=== PATIENT | female | born 1990 | race African-American/Black ===

== ENCOUNTER 2018-02-28 23:36 | Emergency (ER) | payer BC ==
[~2018-02-28] VITALS: Ht 177.8 cm; Wt 85.3 kg
[2018-02-28] MEDS ORDERED: [UNRECOGNIZED DRUG - OTHER] (23:45)
[2018-02-28] MEDS ORDERED: ALBUTEROL2.5 MG/31 INH (23:45)
[2018-02-28] MEDS ORDERED: SYMBICORT160 MCG/4. INH (23:45)
[2018-02-28] MEDS ORDERED: SPIRIVA INH (23:45)
[2018-03-01] MEDS ORDERED: PREDNISONE50 MG PO (01:14)
[2018-03-01] MEDS ORDERED: PROAIR HFA8.5 GM INH (01:14)
[2018-03-01 01:23] VITALS: BP 118/73
== END 2018-03-01 01:25 | disposition home or self-care (01) ==
LOC: ER 23:36
DX: J45.901 Unspecified asthma with (acute) exacerbation (principal); Z88.0 Allergy status to penicillin; Z88.8 Allergy status to other drugs, medicaments and biological substances

== ENCOUNTER 2018-12-09 10:42 | Emergency (ER) | payer BC, OTHER ==
[~2018-12-09] VITALS: Ht 172.7 cm; Wt 83.9 kg
[~2018-12-09 10:42] MED LIST: ALBUTEROL2.5 MG/31 INH; PREDNISONE50 MG PO; PROAIR HFA8.5 GM INH; SPIRIVA INH; SYMBICORT160 MCG/4. INH; [UNRECOGNIZED DRUG - OTHER]
[2018-12-09 11:23] LABS: ABSOLUTE NEUTROPHILS 5.6 thou/uL (1.4-8.2); BASOPHILS 0.6 % (0.0-2.0); EOSINOPHILS 1.8 % (0.0-3.0); HEMATOCRIT 35.5 % (37.0-47.0); HEMOGLOBIN 11.9 gm/dL (12.0-15.0); LYMPHOCYTES 17.9 % (24.0-44.0); MCH 26.5 pg (26.0-34.0); MCHC 33.5 g/dL (28.0-37.0); MCV 79.2 fL (80.0-100.0); PLATELET COUNT 220 thou/uL (150-400); POLYS 74.7 % (36.0-66.0); RBC 4.48 mil/uL (4.20-5.00); RDW 19.2 % (10.5-14.5); WBC 7.5 thou/uL (4.0-11.0)
[2018-12-09 11:34] LABS: CALCIUM 9.1 mg/dL (8.5-10.1); CREATININE 0.8 mg/dL (0.6-1.0); POTASSIUM 3.6 mmol/L (3.5-5.1)
[2018-12-09 11:39] LABS: ALBUMIN 4.3 g/dL (3.4-5.0); TOTAL BILIRUBIN 0.4 mg/dL (<0.1-1.0); TOTAL PROTEIN 8.4 g/dL (6.4-8.2)
[2018-12-09 12:27] LABS: ANISOCYTOSIS 2+
[2018-12-09 13:32] LABS: URINE BILIRUBIN NEGATIVE (Negative); URINE BLOOD NEGATIVE (Negative); URINE CLARITY CLEAR; URINE COLOR YELLOW; URINE GLUCOSE-RANDOM* NEGATIVE (Negative); URINE KETONES NEGATIVE (Negative); URINE LEUKOCYTES-REFLEX NEGATIVE (Negative); URINE NITRITE-REFLEX NEGATIVE (Negative); URINE PROTEIN (DIPSTICK) NEGATIVE (Negative); URINE SPECIFIC GRAVITY 1.015 (1.005-1.035); URINE UROBILINOGEN 0.2 E.U./dl (0.2-1.0)
[2018-12-09] MEDS ORDERED: ONDANSETRON HCL4 M2 PO (14:27)
[2018-12-09] MEDS ORDERED: PEPCID AC10 MG PO (14:27)
[2018-12-09 14:32] VITALS: BP 117/82
== END 2018-12-09 14:49 | disposition home or self-care (01) ==
LOC: ER 10:42
PROVIDERS: Physician Assistant
DX: K29.20 Alcoholic gastritis without bleeding (principal); J45.909 Unspecified asthma, uncomplicated; F32.9 Major depressive disorder, single episode, unspecified; K21.9 Gastro-esophageal reflux disease without esophagitis; F41.9 Anxiety disorder, unspecified; Z88.1 Allergy status to other antibiotic agents; Z88.8 Allergy status to other drugs, medicaments and biological substances

== ENCOUNTER 2019-09-02 03:02 | Inpatient (IN) | payer OTHER ==
[~2019-09-02] VITALS: Ht 177.8 cm; Wt 81.4 kg
[2019-09-02 03:02] VITALS: BP 132/71
[~2019-09-02 03:02] MED LIST changes: +ONDANSETRON HCL4 M2 PO; +PEPCID AC10 MG PO
[2019-09-02 03:42] LABS: CALCIUM 8.7 mg/dL (8.5-10.1); CREATININE 0.9 mg/dL (0.6-1.0); POTASSIUM 3.6 mmol/L (3.5-5.1)
[2019-09-02 03:45] LABS: ABSOLUTE NEUTROPHILS 6.2 thou/uL (1.4-8.2); BASOPHILS 0.9 % (0.0-2.0); EOSINOPHILS 17.6 % (0.0-3.0); HEMATOCRIT 38.6 % (37.0-47.0); HEMOGLOBIN 12.8 gm/dL (12.0-15.0); LYMPHOCYTES 20.2 % (24.0-44.0); MCH 30.4 pg (26.0-34.0); MCHC 33.1 g/dL (28.0-37.0); MCV 91.8 fL (80.0-100.0); MONOCYTES 5.8 % (1.0-8.0); PLATELET COUNT 193 thou/uL (150-400); POLYS 55.5 % (36.0-66.0); RBC 4.21 mil/uL (4.20-5.00); RDW 17.8 % (10.5-14.5); WBC 11.1 thou/uL (4.0-11.0)
[2019-09-02 05:46] VITALS: BP 107/64
--- NOTE | 2019-09-02 07:25 | NUR ---
PATIENT WAS A NEW ADMISSION TO THE UNIT TODAY. SHE ARRIVED VIA CART FROM THE ER AND WAS ABLE TO AMBULATE INTO THE BED. PATIENT APPEARS STRONG AND BALANCED WHEN WALKING AND HAS NOT BEEN DEEMED A HIGH FALL RISK. PATIENT IS ALERT AND ORIENTED AND IS ABLE TO CALL APPROPRIATELY FOR NEEDS AND PARTICIPATE IN ADMISSION PROCESS. MAJORITY OF ADMISSION COMPLETED WITH ONCOMING NURSE GIVEN DETAILED REPORT ON PATIENT AND OUTSTANDING INTERVENTIONS/ASSESSMENTS.
[2019-09-02 07:37] VITALS: BP 114/67
[2019-09-02 15:28] VITALS: BP 124/74
--- NOTE | 2019-09-02 18:05 | NUR ---
PATIENT ADMITTED FROM ED DEPARTMENT THIS MORNING WITH ASTHMA EXACERBATION. DURING BEGINNING OF SHIFT PATIENT SHOWED SIGNS OF RESPIRATORY DISTRESS, DR. COLEMAN NOTIFIED, PO STEROID AND BREATHING TREATMENT ORDERED. PATIENT PLACED ON BIPAP AND WORE FOR 30 MINUTES, PATIENT DID NOT TOLERATE WELL. CURRENTLY ON ROOM AIR, UP INDEPENDENTLY NO OTHER RESPIRATORY EPISODES NOTED. NO SIGNS OF ACUTE DISTRESS NOTED AT THIS TIME. WILL CONTINUE TO MONITOR.
[2019-09-02 19:27] VITALS: BP 134/75
--- NOTE | 2019-09-03 02:33 | NUR ---
PATIENT HAS RESTED IN BED THROUGH NOC. PATIENT ADVISED NURSING SHE FELT SHORT OF BREATH COMING BACK FROM THE BATHROOM EARLIER. NURSING ADVISED PT TO CALL FOR HELP THE NEXT TIME SHE NEEDS TO GET OUT OF BED TO ASSESS HER AMBULATION. NURING WILL CONTINUE TO MONITOR.
[2019-09-03 04:24] VITALS: BP 115/61
[2019-09-03 05:25] LABS: HEMATOCRIT 39.5 % (37.0-47.0); MCH 30.7 pg (26.0-34.0); MCV 93.3 fL (80.0-100.0); RBC 4.24 mil/uL (4.20-5.00); RDW 18.4 % (10.5-14.5); WBC 10.5 thou/uL (4.0-11.0)
[2019-09-03 05:41] LABS: CALCIUM 9.2 mg/dL (8.5-10.1); CREATININE 0.9 mg/dL (0.6-1.0); POTASSIUM 3.6 mmol/L (3.5-5.1)
[2019-09-03 07:39] VITALS: BP 108/73
[2019-09-03 15:06] VITALS: BP 113/57
--- NOTE | 2019-09-03 15:35 | NUR ---
NO SOB. ST WHEN UP. SLOWLY TOWARDS TO POC GOALS. TRANSFER TO 457 NOW.
[2019-09-03 16:02] VITALS: BP 129/68
--- NOTE | 2019-09-03 16:18 | NUR ---
Patient was tranferred from at 1630 today. She is alert and oriented x's 4, denies pain at time of assessment. Patient reports that she does have chest pain upon coughing. Lung sounds are coarse/wheezy throughout all quick. She has a 22 guage IV in her right hand that is Saline Locked. Patient refuses to wear her yellow anti skid socks, stating "I prefer not to wear socks at all." Vital signs are stable. Patient verbalizes an understanding to all education. Will continue to monitor and report to on-coming RN.
[2019-09-03 19:02] VITALS: BP 105/70
--- NOTE | 2019-09-04 02:48 | NUR ---
ASSUMED CARE AROUND 191. AXOX4. SIGNIFICANT OTHER AT BEDSIDE AT ALL TIMES. NO S/S ACUTE DISTRESS NOTED OR REPORTED AT THIS TIME. WILL CONT TO MONITOR FOR ANY CHANGES IN CONDITION.
[2019-09-04 03:42] VITALS: BP 101/59
[2019-09-04 08:00] VITALS: BP 122/78
--- NOTE | 2019-09-04 13:58 | NUR ---
PT ADMITTED RELATED TO ASTHMA EXCACERBATION. CM REVIEWED CHART AND SPOKE WITH CARE TEAM. CM MET WITH PT AND SIG OTHER AT BEDSIDE THIS DAY. PT IS A&O X4. CM ROLE INTRODUCED. PT INDICATED SHE LIVES IN AN APARTMENT WITH HER SIG OTHER SACHIN [place] WITH 16 STEPS TO ENTER AND NO STEPS INSIDE. 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 PT INDICATED SHE HAS A NEBULIZER AND INHALERS FOR HOME USE. PT INDICATED HER PCP IS DR. MONICA MADRID AT [facility]. PT INDICATED SHE IS CURRENTLY PATIENT PAY AND IS INTERESTED IN SPEAKING WITH [employer] ABOUT MEDICAID. CARE TEAM INDICATED THAT PT WILL LIKELY BE MEDICALLY STABLE TO DC HOME TOMORROW. CM TO FOLLOW INDICATED WITH DC PLANNING.
[2019-09-04 15:00] VITALS: BP 130/82
--- NOTE | 2019-09-04 18:12 | NUR ---
Assumed patient care at 0715. Patient's lung sounds are coarse in all quick. No wheezes auscultated. Respiratory Therapy treatments continue. Patient's vital signs have been stable. Patient complained of "level 4" on-cardiac chest pain at 0955. She was given Tylenol 650mg po. Medication effective. POC followed. Plan is to Discharge patient tomorrow. Will continue to monitor.
[2019-09-04 19:22] VITALS: BP 125/59
--- NOTE | 2019-09-05 01:11 | NUR ---
PT ALERT AND ORIENTED X4. PT HAS NO REPORTS OF PAIN OR SOA. PT BOYFRIEND AT BEDSIDE, PT OBSERVED EMOTIONAL. PT EXPRESSES DESIRE TO DISCHARGE SHE REPORTS BEING TOLD THAT SHE WOULD BE DISCHARGED 09/04 BY THE [facility]. PROVIDED PT EMOTIONAL SUPPORT. PT RECEPTIVE TO SUPPORT PROVIDED. PT EXPRESSES THAT SHE HAS RECENT CHANGES IN HER LIFE. PT REQUESTS TO LEAVE AMA. RISKS OF LEAVING AMA EXPLAINED TO PT. PT VERBALIZED UNDERSTANDING. IV DISCONTINUED, AMA FORM COMPLETED, WIRE MACHINE CUTTER AND WOMEN SPECIALIST NOTIFIED. PT ESCORTED TO EMERGENCY EXIT.
[2019-09-06 23:10] LABS: ADENOVIRUS Negative (Negative); INFLUENZA A Negative (Negative); INFLUENZA B Negative (Negative); METAPNEUMOVIRUS Negative (Negative); PARAINFLUENZA 1 Negative (Negative); PARAINFLUENZA 2 Negative (Negative); PARAINFLUENZA 3 Negative (Negative); RHINOVIRUS Negative (Negative); RSV A Negative (Negative); RSV B Negative (Negative)
== END 2019-09-05 00:15 | disposition home or self-care (01) | DRG 831 ==
LOC: ER 03:02 → EROBS 05:20 → 4W 05:20 → 3W 06:14 → 4W 09-03 15:38
PROVIDERS: Emergency Medicine; Nurse Practitioner Family; ADMIT Internal Medicine
PROC: 5A09357 Assistance with Respiratory Ventilation, Less than 24 Consecutive Hours, Continuous Positive Airway Pressure (ICD-10-PCS; principal; 2019-09-02)
DX: O99.511 Diseases of the respiratory system complicating pregnancy, first trimester (principal); J96.01 Acute respiratory failure with hypoxia; J45.901 Unspecified asthma with (acute) exacerbation; F32.9 Major depressive disorder, single episode, unspecified; K21.9 Gastro-esophageal reflux disease without esophagitis; O99.341 Other mental disorders complicating pregnancy, first trimester; O99.611 Diseases of the digestive system complicating pregnancy, first trimester; F41.9 Anxiety disorder, unspecified; O99.331 Smoking (tobacco) complicating pregnancy, first trimester; F17.290 Nicotine dependence, other tobacco product, uncomplicated; Z79.899 Other long term (current) drug therapy; Z79.51 Long term (current) use of inhaled steroids; Z88.9 Allergy status to unspecified drugs, medicaments and biological substances; Z3A.01 Less than 8 weeks gestation of pregnancy
CPT/HCPCS: 10047; 10879